=== PATIENT | female | born 1970 | race Caucasian/White ===

== ENCOUNTER 2022-11-24 09:30 | Observation (INO) ==
--- NOTE | 2022-11-15 14:33 | Anesthesiology Consultation ---
Date of Service November 15, 2022 Assessment & Plan (1) Encounter for pre-operative examination: Plan - awaiting PCP pre-op notation. - pt will need PCP pre-op notation per surgeon's office. - COVID screening: Per record changer assembler on 11/15/2022: Travel screen negative, no known COVID-19 positive contacts or current COVID-19 related symptoms in past 2 weeks. To surgeon's discretion if preop COVID testing is needed. Chart Review Chart Review: Pending: Refer to Additional Notes / Consult section and Patient NOT seen in Pre Admission Testing History Surgery Operation Date: 11/24/22 11:40 Proposed Procedures p Abdominoplasty - Pat Collier MD Height/Weight Height: 5 ft 4 in Weight: 68.492 kg Allergies Allergy/AdvReac Type Severity Reaction Status Date / Time Iodinated Contrast Media Allergy Unknown Unknown Verified 11/15/22 13:27 iodine Allergy Unknown SKIN PEELS Verified 11/15/22 13:04 Penicillins Allergy Unknown Hives Verified 11/15/22 13:04 ciprofloxacin [From Cipro] AdvReac Unknown JITTERS Verified 11/15/22 13:04 Sulfa (Sulfonamide AdvReac Unknown skin feels Verified 11/15/22 13:04 Antibiotics) tight Medications Home Medications Medication Instructions Recorded Confirmed Last Taken amlodipine 5 mg tablet 5 mg PO HS 10/20/22 11/15/22 Unknown citalopram 40 mg tablet 40 mg PO HS 10/20/22 11/15/22 Unknown cyanocobalamin (vitamin B-12) 500 500 mcg PO Q OTHER DAY 10/20/22 11/15/22 Unknown mcg tablet lorazepam 1 mg tablet 1 mg PO DAILY PRN Anxiety 10/20/22 11/15/22 Unknown miconazole nitrate 2 % topical 1 applic topical DAILY PRN Skin 10/20/22 11/15/22 Unknown powder (Lotrimin AF) Irritation montelukast 10 mg tablet 10 mg PO HS 10/20/22 11/15/22 Unknown pantoprazole 40 mg tablet,delayed 40 mg PO BID 10/20/22 11/15/22 Unknown release trazodone 50 mg tablet 75 mg PO HS 10/20/22 11/15/22 Unknown oxycodone-acetaminophen 5 mg-325 1 tab PO Q4H PRN pain #18 tabs 11/08/22 11/15/22 Unknown mg tablet (Endocet) Past Medical History Medical History Anxiety and depression GERD (gastroesophageal reflux disease) History of COVID-19 06/2020- pneumonia; not hospitalized- resolved HTN (hypertension) not sure if thats the reason for amlodipine, denies htn Seasonal allergies Past Family History Family History Other Cancer Heart disease Past Surgical History Surgical History History of esophagogastroduodenoscopy (EGD) History of gastric bypass sleeve 2020 History of hysterectomy 1998 History of surgical removal of ganglion cyst Hx of cardiac catheterization ? hx 06/2021- no stents--unsure if this is what she had done after going to ER with abdominal pain- suspected NSTEMI at time, thinks that has since been ruled out and pain was due to kidney stones- [facility] --- follows [facility] cardio in [place] last > 1 yr ago- states only needs to be seen by cardio every 2 yrs - no issues since Hx of colonoscopy Social History Smoking Status: Never smoker Do You Dip or Chew Tobacco: No Hx Alcohol Use: No Hx Substance Use: No substance use type: does not use Lab Results Anesthesia Preop Results Results Anesthesia Widget: WBC 4.97 K/ul (4.8-10.8) 11/08/22 Hgb 13.9 g/dl (12.0-16.0) 11/08/22 Hct 39.5 % (37.0-47.0) 11/08/22 Plt 175 K/uL (130-400) 11/08/22 Na 141 mmol/L (136-145) 11/08/22 K 3.9 mmol/L (3.5-5.1) 11/08/22 Cl 106 mmol/L (98-107) 11/08/22 CO2 31 mmol/L (21-32) 11/08/22 BUN 14 mg/dl (6-23) 11/08/22 Creat 0.69 mg/dl (0.6-1.2) 11/08/22 Glucose Level 77 mg/dl (70-99(Fasting)) 11/08/22 PT 11.9 Seconds (9.0-12.0) 11/08/22 INR 1.1 (0.9-1.1) 11/08/22 Testing Electrocardiogram Date: 11/08/22 Sinus bradycardia, rate [address] abnormality Echocardiogram Date: 06/10/21 EF 60-65% No LV regional wall motion abnormalities Mild tricuspid regurgitation
[~2022-11-24 09:30] MED LIST: ALLERGY Noted to ORDERED Medication SCH; CLINDA 900 MG **Premixed Bag IV SCH; LACTATED RINGER'S 1,000 ML IV SCH
[2022-11-24] MEDS ORDERED: MIDAZOLAM HCL 1 MG/ML 2ML VIAL ONE (11:02)
[2022-11-24] MEDS ORDERED: fentaNYL citrate PF 100 MCG/2 ML VIAL ONE (11:02)
--- NOTE | 2022-11-24 11:31 | History & Physical Bridge Note ---
Date of Service November 24, 2022 History & Physical Bridge Note I have examined the patient, reviewed the History & Physical and in the interval since the performance of the History & Physical I have noted the following changes of clinical significance: no changes noted
[2022-11-24] MEDS ORDERED: HYDROmorphone INJ 2 MG/ML SYR/VIAL IV PRN (11:43)
[2022-11-24] MEDS ORDERED: PROMETHAZINE HCL 6.25 MG in SODIUM CHLORIDE 0.9% 50 ML IV PRN (11:43)
[2022-11-24] MEDS ORDERED: ePHEDrine sulfate 50 MG/ML AMP IV PRN (11:43)
[2022-11-24] MEDS ORDERED: ATROPINE SULFATE 0.1 MG/ML 10ML SYR IV PRN (11:43)
[2022-11-24] MEDS ORDERED: ONDANSETRON INJ 2 MG/ML 2 ML VIAL IV PRN ×2 (11:43→16:45)
[2022-11-24] MEDS ORDERED: BUPIVACAINE 0.25% PF 30 ML VIAL ONE (11:49)
[2022-11-24] MEDS ORDERED: EPINEPHrine INJ 1 MG/ML AMP ONE (11:49)
[2022-11-24] MEDS ORDERED: LIDOCAINE 1%/EPINEPHRINE 1:100,000 20 ML VIAL ONE (11:49)
[2022-11-24] MEDS ORDERED: LIDOCAINE 1% LOCAL 20 ML VIAL ONE (11:49)
[2022-11-24] MEDS ORDERED: CLINDAMYCIN 900 MG/D5W 50 ML BAG IV ONE (11:54)
[2022-11-24] MEDS ORDERED: PROPOFOL IV EMULSION 10 MG/ML 20 ML VIAL IV ONE ×2 (12:39→14:08)
[2022-11-24] MEDS ORDERED: LIDOCAINE 2% 2 ML VIAL/AMP(20MG/ML) INFIL ONE (12:39)
[2022-11-24] MEDS ORDERED: ROCURONIUM BROMIDE 10 MG/ML 5 ML VIAL IV ONE (12:39)
[2022-11-24] MEDS ORDERED: TISSEEL FIBRIN SEALANT 4ML TOP ONE (13:34)
[2022-11-24] MEDS ORDERED: ONDANSETRON INJ 2 MG/ML 2 ML VIAL ONE (14:49)
[2022-11-24] MEDS ORDERED: HYDROmorphone INJ 1 MG/ML SYRINGE ONE (15:07)
--- NOTE | 2022-11-24 15:17 | Operative Report ---
PG Post Operative Report Pre & Post Diagnosis Operation Date: 11/24/22 11:30 Pre-Op Diagnosis: Abdominal Pannus, Encounter for cosmetic Surgery Post-Op Diagnosis: Abdominal Pannus, Encounter for cosmetic Surgery I identified the patient and participated in the time-out.: Yes Procedure Operation Date: 11/24/22 11:30 Actual Procedures p Abdominoplasty(Not Applicable) - Pat Collier MD Surgeon Pat Collier MD Addiction Therapist Tiffanie Og PA-C Estimated Blood Loss 50 Findings Consistent with Post-Op Diagnosis (3 cm rectus diastasis at umbilicus) Specimens abdominal pannus Drains RUMA x2 Anesthesia Type General Complications none Indications s/p massive weight loss, with abdominal pannus and intertrigo Description of Procedure Risks, benefits, and alternatives of the procedure were explained to the patient who agreed and signed consent. She was identified and marked in the preoperative holding area. She was brought to the operating room where she was positioned supine and placed under general anesthesia without incident. Neil catheter was placed. Surgical site was prepped and draped sterilely. A time-out procedure was performed. I reassessed my markings which included a lower horizontal abdominal incision with the midportion 7 cm above the vulvar commissure. Incision was marked bilaterally to the ASIS. I began by injecting 1% lidocaine with epinephrine along the planned incision. The lower abdominal incision was made using a 15-blade scalpel to incise epidermis and superficial dermis followed by electrocautery to incise deep dermis, subcutaneous fat, Moise's fascia down to the abdominal wall. Care was taken to bevel superiorly in order to avoid encountering the inguinal region. Electrocautery was used to elevate the anterior abdominal skin flap ligating the perforating vessels with 3-0 Vicryl ties and electrocautery. Dissection was carried up to the level of the umbilicus in the midline. At this point, a 15-blade scalpel was used to circ umscribe the umbilicus. A vertical midline incision was then made from the incision to the umbilicus and divided in the midline using electrocautery. The umbilicus was then dissected out using electrocautery. At this point, staff was notified I was beginning the cosmetic portion of the procedure and the time was noted in the nursing documentation. I continued undermining the abdominal wall skin flap above the umbilicus to the xiphoid process, significantly narrowing the dissection to avoid jeopardizing blood supply.I began repair of the rectus diastasis, which was about 3 cm in greatest diameter and extended nearly the full length of the abdomen, widest above the umbilicus. Plication from the xiphoid to the umbilicus and from the umbilicus to the pubic symphysis was performed using 0 Prolene interrupted [id number] sutures. 0 Prolene running suture was then placed to oversew the [id number] sutures and reinforced the repair. End of cosmetic time was noted. At this point, the bed was flexed and the mid portion of the superior skin flap was inset above the mons pubis using 2-0 Vicryl suture. Skin flaps were marked for excision. A 15- blade scalpel was used to make these incisions and the incision was deepened through dermis, subcutaneous fat, Moise's fat using electrocautery. Subscarpal fat was resected directly at the planned site of inset of the umbilicus. A 15 [place] Umang drains were placed in the wound bed and brought out through a separate stab incision in the mons pubis. The drains were sutured into place using 3-0 nylon. The umbilicus was brought out through an inverted triangular incision in the abdominal wall. Due to the depth of the pole of the umbilicus, this was shortened to facilitate closure. This was performed using a 15-blade scalpel. Prior to closure, a total of 10 mL of 0.25% Marcaine plain were injected into the fascia as well as along the incisions and Tisseel was sprayed under the flap in order to prevent hematoma as I did encounter some small bleeding vessels. Wound closure was then begun lateral to medial using 2-0 Vicryl Moise's fascia sutures, 2-0 Vicryl deep dermal sutures, 2-0 PDO running superficial Quill suture, 3-0 Monocryl running subcuticular suture. Umbilicus was brought out through the inverted triangle incision and was sutured into place using 4-0 chromic half buried horizontal mattress sutures. The umbilicus was dressed using Xeroform and the incision was dressed using Dermabond Prineo followed by dry dressings and an abdominal binder. The procedure was tolerated well. The patient was awakened and transferred to recovery in satisfactory condition. Tiffanie Og PA-C was present and scrubbed throughout the entire procedure and was instrumental in providing retraction of the pannus and assisting in simultaneous wound closure. I attest to the content of the Intraoperative Record and any orders documented therein. Any exceptions are noted below.
--- NOTE | 2022-11-24 15:17 | Post Operative Brief Note ---
PG Immediate Post Op with CF Date of Surgery November 24, 2022 Pre & Post Diagnosis Operation Date: 11/24/22 11:30 Pre-Op Diagnosis: Abdominal Pannus, Encounter for cosmetic Surgery Post-Op Diagnosis: Abdominal Pannus, Encounter for cosmetic Surgery I identified the patient and participated in the time-out.: Yes Procedure Operation Date: 11/24/22 11:30 Actual Procedures p Abdominoplasty(Not Applicable) - Pat Collier MD Surgeon Pat Collier MD Computer Technical Support Specialist Tiffanie Og PA-C Estimated Blood Loss 50 Findings Consistent with Post-Op Diagnosis (3 cm rectus diastasis at umbilicus) Specimens Specimen Description: A. Abdominal pannus Drains Neil Catheter (16 Indian 10mL Neil catheter inserted by Zaire Curry RN prior to start of procedure) and Robin-Mullins Drain (2 Robin-Mullins drains inserted into lower abdomen by Dr. Collier during procedure) Anesthesia Type General Complications none
[2022-11-24] MEDS: fentaNYL citrate PF 100 MCG/2 ML VIAL IV PRN ×3 (15:40→15:50)
[2022-11-24] MEDS ORDERED: diphenhydrAMINE Capsule 25 MG CAP PO PRN (16:45)
[2022-11-24] MEDS ORDERED: PROMETHAZINE HCL 12.5 MG in SODIUM CHLORIDE 0.9% 50 ML IV PRN (16:45)
[2022-11-24] MEDS ORDERED: LORazepam 1 MG TAB PO PRN (16:45)
[2022-11-24] MEDS ORDERED: oxyCODONE/ACETAMINOPHEN 5mg/325mg TAB PO PRN (16:45)
[2022-11-24] MEDS ORDERED: MoRPHine SULFATE 2 MG/ML CARP IV PRN (16:45)
[2022-11-24] MEDS ORDERED: diphenhydrAMINE 50 MG/ML VIAL IV PRN (16:45)
[2022-11-24] MEDS ORDERED: ACETAMINOPHEN 325 MG TAB PO PRN (16:45)
[2022-11-24] MEDS: MoRPHine SULFATE 4 MG/ML 1 ML CARP\\VIAL IV PRN ×3 (17:01→23:19)
[2022-11-24] MEDS: D5W AND 1/2NSS 1,000 ML IV SCH (17:03)
[2022-11-24] MEDS: CLINDAMYCIN/D5W 600 MG/50 ML BAG IV SCH (20:03)
[2022-11-24] MEDS: PANTOprazole 40 MG TAB PO SCH (20:11)
[2022-11-24] MEDS ORDERED: amLODIPine BESYLATE 5 MG TAB PO SCH (21:00)
[2022-11-24] MEDS ORDERED: MONTELUKAST SODIUM 10 MG TABLET PO SCH (21:00)
[2022-11-24] MEDS ORDERED: traZODone HCL 50 MG TAB PO SCH (21:00)
[2022-11-24] MEDS ORDERED: CITALOPRAM 40 MG TAB PO SCH (21:00)
[2022-11-24] MEDS: oxyCODONE/ACETAMINOPHEN 5mg/325mg TAB PO PRN (21:07)
[2022-11-25] MEDS: oxyCODONE/ACETAMINOPHEN 5mg/325mg TAB PO PRN ×3 (01:03→09:56)
[2022-11-25] MEDS: MoRPHine SULFATE 4 MG/ML 1 ML CARP\\VIAL IV PRN (03:59)
[2022-11-25] MEDS: D5W AND 1/2NSS 1,000 ML IV SCH (04:58)
[2022-11-25] MEDS: CLINDAMYCIN/D5W 600 MG/50 ML BAG IV SCH (04:59)
--- NOTE | 2022-11-25 09:01 | Surgery Progress Note ---
Date of Service November 25, 2022 Assessment & Plan (1) S/P abdominoplasty: Plan: Shaista is 1 day post-op and is doing well. Drain output approximately 40 cc/drain since surgery with no signs of clots in bulb. She is aware that her surgical dressings and binder are to stay in place until she is seen at the office tomorrow. She is aware that she is not to shower until advised to do so. Remainder of discharge instructions reviewed. She was able to obtain her post-op pain medication. She is ok for discharge to home with follow-up tomorrow in [facility] office. Return precautions reviewed. All questions answered. Admission and Anticipated Discharge Date Admission Date: November 24, 2022 Subjective Shaista is 1 day s/p Abdominoplasty. She reports that she is feeling sore, but overall good. Neil was removed this AM and she was able to void on her own. She denies any nausea, reports some mild lightheadedness when she first stands. Her boyfriend is at bedside. Physical Exam Physical Exam: Surgical binder on- opened to view surgical dressings, which are clean and dry. Drains x [address] with bloody drainage, no signs of blood clots in bulbs. Results & Data Vital Signs (Past 12 Hours) Vital Signs Temp Pulse Resp BP Pulse Ox O2 Del Method 11/25/22 07:39 37.0 C 85 16 101/63 94 Room Air 11/25/22 02:30 98 H 16 104/64 95 Room Air 11/25/22 02:00 37.6 C H 89 18 98/60 L 91 Room Air 11/24/22 22:07 37.4 C 84 18 122/75 96 Room Air PG Care Time/CCT Total # of Minutes Spent Total Time Spent with Patient: Total time spent is greater than 50% in coordination of care (as documented) at patient's floor/unit and/or counseling patient: Coding Level of Care Code 80608 Post Operative Follow-Up Diagnoses S/P abdominoplasty Z98.890
[2022-11-25] MEDS: PANTOprazole 40 MG TAB PO SCH (09:56)
--- NOTE | 2022-11-25 14:32 | Discharge Summary ---
Date of Service November 25, 2022 Admission HPI Per Admitting Provider Please see admission H & P Admission Exam Per Admitting Provider Please see admission H & P. Principal Diagnosis Abdominal Pannus, Encounter for Cosmetic Surgery Discharge Exam Surgical binder on- opened to view surgical dressings, which are clean and dry. Drains x [address] with bloody drainage, no signs of blood clots in bulbs. Respiratory normal respiratory effort; no respiratory distress and no labored breathing Cardiovascular RRR, no murmur, no edema Discharge Data Allergies Allergy/AdvReac Type Severity Reaction Status Date / Time Iodinated Contrast Media Allergy Unknown Unknown Verified 11/15/22 13:27 iodine Allergy Unknown SKIN PEELS Verified 11/15/22 13:04 Penicillins Allergy Unknown Hives Verified 11/15/22 13:04 ciprofloxacin [From Cipro] AdvReac Unknown JITTERS Verified 11/15/22 13:04 Sulfa (Sulfonamide AdvReac Unknown skin feels Verified 11/15/22 13:04 Antibiotics) tight Procedures Performed Operation Date: 11/24/22 11:30 Actual Procedures p Abdominoplasty(Not Applicable) - Pat Collier MD Hospital Course (1) S/P abdominoplasty: Shaista is a 52-year-old female with symptomatic abdominal pannus. She was taken to the OR and underwent Abdominoplasty. There were no intraoperative complications. She was taken to recovery and transferred to med/surg for observation. On POD #1 she was feeling a bit sore, but overall was doing well. Neil catheter was removed and she was able to void on her own. She was tolerating a regular diet and was able to ambulate in her room without issue. Drains were viewed and drain management was reviewed with Shaista. On exam, her vitals were stable. Her abdominal incision was clean and dry. She was discharged home with instructions to follow-up in the [facility] office in 1 day. All questions we re answered. Total Time Total Time Spent Total Time Spent (In Minutes): 5 Discharge Plan Discharge Items Patient Disposition: Home - Self-Care Reason For Visit: Abdominal Pannus, Encounter for cosmetic Surgery Discharge Diagnosis: Abdominal Pannus, Encounter for Cosmetic Surgery Activity: As commented below Non-emergency contact: Surgeon Call non-emergency contact if: you have any medication questions, your pain is not controlled, your temperature is above 101.5, your wound has increased redness and your wound has increased drainage Follow-up/Referrals: Pat Collier MD [Physician] - 11/26/22 2:00 pm Eduardo Selby MD [Primary Care Provider] - Diet: Regular Addtl Attending Provider Instructions: ACTIVITY RECOMMENDATIONS: __Normal activities X__No bending, lifting or straining __No driving _x_Driving allowed when you are off pain medications _X_Walking permitted __You should have help at home for ___ days DRESSINGS: __No dressings required _X_Keep dressings dry/in place until first office visit __Remove dressings ___ and leave dressings off __Apply ice ___ days __Remove dressings and reapply garment __Apply antibiotic ointment (Bacitracin, Neosporin, etc) to wounds 3-4 times/day for 10 days BATHING: _X_Keep dressings dry __Sponge bathing permitted __Showering permitted _X_No swimming, hot tubs or soaking in a tub MEDICATIONS: Resume previous medications unless instructed otherwise by your surgeon. _X_Do not use aspirin, Motrin, Advil or Ibuprofen as these may promote bleeding. Please use Tylenol. _X_Prescription(s) provided: Prescription for post-op pain medication provided at last office visit. Please use as prescribed. OTHER INSTRUCTIONS: _X_Record drain output 2-3 times per day SPECIAL CARE INSTRUCTIONS: * It is normal to have a mild fever after surgery. If your temperature is higher than 101.5 degrees F, please call the office at [phone]. * Constipation is a typical side effect of pain medication. An [id number] stool softener will help relieve this. * Leaking around surgical drains may occur and should not cause concern. Sometimes these drains become clogged. If this happens, remove the bulb and milk the clot out of the tube, then replace the bulb. * Drainage from wounds after liposuction is normal and should be expected. Garments will become soiled. You should protect furniture and bedding. This drainage should mostly subside within 2-3 days. Leave garments in place unless instructed to remove them. * If you have unusual drainage from a wound or are concerned you have an infection or have any questions or concerns, please call the office at [phone]. FOLLOW UP VISIT: If not already scheduled, please call the office, , when you return home after surgery to schedule an appointment to be seen in __1_ days. Pending Studies at Discharge: Yes Studies:: Pathology report. Stand-Alone Forms: My [facility] [employer] Media, Smoking Cessation Medications and DC Order Prescriptions: Continued amlodipine 5 mg tablet 5 mg PO HS lorazepam 1 mg tablet 1 mg PO DAILY PRN (Reason: Anxiety) citalopram 40 mg tablet 40 mg PO HS trazodone 50 mg tablet 75 mg PO HS pantoprazole 40 mg tablet,delayed release (DR/EC) 40 mg PO BID montelukast 10 mg tablet 10 mg PO HS miconazole nitrate [Lotrimin AF] 2 % powder 1 applic topical DAILY PRN (Reason: Skin Irritation) oxycodone-acetaminophen [Endocet] 5-325 mg tablet 1 tab PO Q4H PRN (Reason: pain) Qty: 18 0RF Rx Instructions: initial therapy Dr. Collier [id number] Discontinued cyanocobalamin (vitamin B-12) 500 mcg tablet 500 mcg PO Q OTHER DAY Hold Instructions: surgery Discharge Orders: Discharge Order (Routine); Ordered 11/25/22 Ordered By: Denise Ceron/Other Patient Handouts: Robin Mullins Drain Tube Dc, Post Op Drain Emptying Steps Admission Data Admit Date/Time: 11/24/22 15:17 Attending Provider: Pat Collier Admit Provider: Pat Collier Primary Care Provider: Eduardo Selby Other Interventions: Discharge Summary Assessment (RN) Last Done: 11/25/22 09:46 Coding Level of Care Code 92108 OBS Care - Discharge Diagnoses S/P abdominoplasty Z98.890
== END 2022-11-25 10:39 | disposition home or self-care (01) ==
LOC: ASU 09:30 → 3N 09:30